=== PATIENT | female | born 1930 | race Caucasian/White ===

== ENCOUNTER 2020-09-01 15:28 | Emergency (ER) | payer MEDICARE, BC ==
[~2020-09-01 15:28] MED LIST: ANTIVERT 25MG T25 MG PO; ARICEPT5 MG PO; ASPIRIN CHEWABL81 MG PO; AZO CRANBERRY1 EAC1 PO; B-122500 MCG SL; BACTRIM DS TAB1 EACH PO; BACTROBAN OINT22 GM EXT; BENADRYL ALLERG25 MG PO; CEPHALEXIN500 MG PO; CIPRO250 MG PO; COZAAR100 MG PO; CRANBERRY200 MG PO; ECOTRIN81 MG PO; ENSURE ORIGINA237 ML PO; ENTOCORT EC3 MG PO; FUROSEMIDE20 MG PO; KEFLEX CAP 500500 MG PO; LASIX20 MG PO; LOPERAMIDE2 M1 PO; MACRODANTIN50 MG PO; MEGACE 400400 MG/10 PO; MEGACE SUSP40 MG/M1 PO; NAMENDA10 MG PO; NITROFURANTOIN50 MG PO; NORVASC 5 MG TAB5 MG PO; OMNICEF 300 MG300 MG PO; QUETIAPINE FUMA25 MG PO; SYNTHROID25 MCG PO; SYNTHROID50 MCG PO; THERAGRAN TAB1 EA PO; TOPROL XL25 MG PO; TYLENOL 325MG325 MG PO; UCERIS9 MG PO; UNISOM50 MG PO; VIBRAMYCIN100 MG PO; VITAMIN B-121000 MCG PO; XARELTO15 PACK PO; ZANTAC 150 MG150 MG PO; ZANTAC150 MG PO; ZITHROMAX250 MG PO; ZOFRAN ODT 4 MG4 MG PO; ZOLOFT25 MG PO; [UNRECOGNIZED DRUG - REMARK] PO
[2020-09-01 19:13] LABS: HEMOGLOBIN 16.3 gm/dl (12.3-15.3); RED BLOOD COUNT 4.87 M/UL (4.00-5.10); WHITE BLOOD COUNT 11.6 K/UL (4.5-11.0)
[2020-09-01 19:31] LABS: BUN/CREATININE RATIO 24 (0-10)
[2020-09-01] MEDS ORDERED: CEFUROXIME500 MG PO (20:04)
== END 2020-09-01 20:40 | disposition home or self-care (01) ==
LOC: ER1 15:28
PROVIDERS: Preventive Medicine Occupational Medicine
DX: R30.0 Dysuria (principal); F03.90 Unspecified dementia, unspecified severity, without behavioral disturbance, psychotic disturbance, mood disturbance, and anxiety; F17.200 Nicotine dependence, unspecified, uncomplicated; I10 Essential (primary) hypertension; Z87.440 Personal history of urinary (tract) infections
CPT/HCPCS: 80053; 81001; 85025; 87086; 96365; 99283; J0696

== ENCOUNTER 2020-11-27 03:52 | Emergency (ER) | payer MEDICARE, BC ==
[~2020-11-27 03:52] MED LIST changes: +CEFUROXIME500 MG PO
[2020-11-27 04:32] LABS: HEMOGLOBIN 14.3 gm/dl (12.3-15.3); RED BLOOD COUNT 4.18 M/UL (4.00-5.10)
[2020-11-27 05:01] LABS: BUN/CREATININE RATIO 39 (0-10)
== END 2020-11-27 10:25 | disposition home or self-care (01) ==
LOC: ER1 03:52
PROVIDERS: Student in an Organized Health Care Education/Training Program
DX: R06.00 Dyspnea, unspecified (principal); R53.1 Weakness; F03.90 Unspecified dementia, unspecified severity, without behavioral disturbance, psychotic disturbance, mood disturbance, and anxiety; Z20.822 Contact with and (suspected) exposure to COVID-19; I11.0 Hypertensive heart disease with heart failure; I50.9 Heart failure, unspecified; E03.9 Hypothyroidism, unspecified
CPT/HCPCS: 0240U; 36600; 70450; 71045; 80053; 81001; 82550; 82553; 82803; 83605; 83690; 83735; 83874; 83880; 84100; 84439; 84443; 84484; 85025; 85379; 87086; 93005; 99285; Q9967

== ENCOUNTER 2020-12-03 19:48 | Emergency (ER) | payer MEDICARE, BC ==
[2020-12-03 22:50] LABS: RED BLOOD COUNT 4.78 M/UL (4.00-5.10); WHITE BLOOD COUNT 10.1 K/UL (4.5-11.0)
[2020-12-03 22:51] LABS: HEMOGLOBIN 16.4 gm/dl (12.3-15.3)
== END 2020-12-04 00:48 | disposition home or self-care (01) ==
LOC: ER1 19:48
PROVIDERS: Physician Assistant
DX: F03.90 Unspecified dementia, unspecified severity, without behavioral disturbance, psychotic disturbance, mood disturbance, and anxiety (principal)
CPT/HCPCS: 70450; 80053; 81001; 85025; 87086; 99285

== ENCOUNTER 2020-12-06 18:36 | Emergency (ER) | payer MEDICARE, BC ==
[2020-12-06 19:39] LABS: HEMOGLOBIN 15.7 gm/dl (12.3-15.3); RED BLOOD COUNT 4.65 M/UL (4.00-5.10)
[2020-12-06 19:56] LABS: BUN/CREATININE RATIO 25 (0-10)
[2020-12-07] MEDS ORDERED: KEFLEX CAP 250250 MG PO (01:29)
== END 2020-12-07 01:38 | disposition home or self-care (01) ==
LOC: ER1 18:36
PROVIDERS: Family Medicine
DX: R44.3 Hallucinations, unspecified (principal); F91.9 Conduct disorder, unspecified; N39.0 Urinary tract infection, site not specified; Z20.822 Contact with and (suspected) exposure to COVID-19; I10 Essential (primary) hypertension; R00.0 Tachycardia, unspecified
CPT/HCPCS: 71045; 80053; 80307; 81001; 82140; 82550; 82553; 83874; 84439; 84443; 84484; 85025; 85610; 93005; 96374; 99284; G0480; J0690; U0002

== ENCOUNTER 2020-12-13 16:48 | Observation (INO) | payer MEDICARE, BC ==
[~2020-12-13] VITALS: Ht 162.6 cm; Wt 55.8 kg
[~2020-12-13 16:48] MED LIST changes: +KEFLEX CAP 250250 MG PO
[2020-12-13 17:35] LABS: RED BLOOD COUNT 4.79 M/UL (4.00-5.10); WHITE BLOOD COUNT 9.7 K/UL (4.5-11.0)
[2020-12-14] MEDS ORDERED: KEFLEX CAP 250250 MG PO (00:45)
[2020-12-14] MEDS ORDERED: NITROFURANTOIN50 MG PO (00:47)
[2020-12-14] MEDS ORDERED: NAMENDA10 MG PO (00:48)
[2020-12-14 04:50] LABS: HEMOGLOBIN 14.8 gm/dl (12.3-15.3); RED BLOOD COUNT 4.41 M/UL (4.00-5.10); WHITE BLOOD COUNT 9.7 K/UL (4.5-11.0)
[2020-12-14] MEDS ORDERED: SYNTHROID88 MCG PO (09:29)
[2020-12-15] MEDS ORDERED: FAMOTIDINE20 MG PO (08:40)
[2020-12-15] MEDS ORDERED: CEFUROXIME500 MG PO (08:40)
--- NOTE | 2020-12-15 12:21 | NUR ---
CALLED REPORT TO CAROL AT [facility], ALSO CALLED EMS
--- NOTE | 2020-12-15 14:32 | NUR ---
pt left per ems at time family at bedside
== END 2020-12-15 14:29 ==
LOC: ER1 16:48 → CDU 19:21 → MED SURG 4 23:04
PROVIDERS: Physician Assistant Medical; ADMIT Internal Medicine
DX: N39.0 Urinary tract infection, site not specified (principal); R53.1 Weakness; R63.0 Anorexia; I10 Essential (primary) hypertension; E03.9 Hypothyroidism, unspecified; K21.9 Gastro-esophageal reflux disease without esophagitis; Z20.822 Contact with and (suspected) exposure to COVID-19; G93.41 Metabolic encephalopathy; F02.80 Dementia in other diseases classified elsewhere, unspecified severity, without behavioral disturbance, psychotic disturbance, mood disturbance, and anxiety; I49.1 Atrial premature depolarization; I44.4 Left anterior fascicular block; Z88.2 Allergy status to sulfonamides; Z79.82 Long term (current) use of aspirin; E86.0 Dehydration; R11.0 Nausea
CPT/HCPCS: 36415; 51701; 80048; 80053; 81001; 83605; 83735; 85025; 87040; 87077; 87086; 87186; 93005; 94760; 96372; 96374; 96376; 97162; 97530; 99285; G0378; J0696; J1650; U0002

== ENCOUNTER 2020-12-19 16:18 | Inpatient (IN) | payer MEDICARE, BC ==
[~2020-12-19] VITALS: Ht 157.5 cm; Wt 50.5 kg
[~2020-12-19 16:18] MED LIST changes: +FAMOTIDINE20 MG PO; +SYNTHROID88 MCG PO
[2020-12-19 18:11] LABS: HEMOGLOBIN 15.3 gm/dl (12.3-15.3); RED BLOOD COUNT 4.53 M/UL (4.00-5.10); WHITE BLOOD COUNT 14.3 K/UL (4.5-11.0)
[2020-12-19 18:37] LABS: BUN/CREATININE RATIO 39 (0-10)
[2020-12-20 03:52] LABS: HEMOGLOBIN 14.8 gm/dl (12.3-15.3); RED BLOOD COUNT 4.47 M/UL (4.00-5.10); WHITE BLOOD COUNT 16.4 K/UL (4.5-11.0)
[2020-12-20] MEDS ORDERED: XANAX0.5 MG PO (06:26)
[2020-12-21 11:02] LABS: HEMOGLOBIN 13.6 gm/dl (12.3-15.3); RED BLOOD COUNT 4.05 M/UL (4.00-5.10); WHITE BLOOD COUNT 15.6 K/UL (4.5-11.0)
[2020-12-22 05:12] LABS: BUN/CREATININE RATIO 41 (0-10)
[2020-12-22 05:13] LABS: HEMOGLOBIN 13.1 gm/dl (12.3-15.3); RED BLOOD COUNT 3.95 M/UL (4.00-5.10); WHITE BLOOD COUNT 12.5 K/UL (4.5-11.0)
[2020-12-23 06:51] LABS: HEMOGLOBIN 13.1 gm/dl (12.3-15.3); RED BLOOD COUNT 3.97 M/UL (4.00-5.10)
[2020-12-23 07:15] LABS: BUN/CREATININE RATIO 29 (0-10)
[2020-12-24 04:45] LABS: BUN/CREATININE RATIO 18 (0-10)
[2020-12-25 06:13] LABS: HEMOGLOBIN 14.2 gm/dl (12.3-15.3); RED BLOOD COUNT 4.27 M/UL (4.00-5.10); WHITE BLOOD COUNT 12.4 K/UL (4.5-11.0)
[2020-12-25 06:36] LABS: BUN/CREATININE RATIO 12 (0-10)
[2020-12-26 06:56] LABS: BUN/CREATININE RATIO 10 (0-10)
[2020-12-26] MEDS ORDERED: FAMOTIDINE20 MG PO (10:05)
[2020-12-26] MEDS ORDERED: METOPROLOL SUCC25 MG PO (10:05)
[2020-12-28 04:03] LABS: HEMOGLOBIN 13.1 gm/dl (12.3-15.3); RED BLOOD COUNT 3.98 M/UL (4.00-5.10); WHITE BLOOD COUNT 9.3 K/UL (4.5-11.0)
[2020-12-28 04:20] LABS: BUN/CREATININE RATIO 19 (0-10)
--- NOTE | 2020-12-28 20:26 | NUR ---
Patient rolled off floor on stretcher by [facility] at 2008. [place] notified of patient's departure from our facility. Family at patient's side and denies any needs or concerns at this time. Patient's PEG tube feeding is stopped and tube is clamped and closed off for transport. Patient does not have any IV sites or a jackson catheter. Patient is alert and stable, no acute distress noted.
== END 2020-12-28 20:09 | DRG 871 ==
LOC: ER1 16:18 → CDU 22:18 → MED SURG 4 22:18
PROVIDERS: Internal Medicine; Internal Medicine Gastroenterology; Physician Assistant; ADMIT Internal Medicine
PROC: 3E0G76Z Introduction of Nutritional Substance into Upper GI, Via Natural or Artificial Opening (ICD-10-PCS; 2020-12-27)
PROC: 0DH63UZ Insertion of Feeding Device into Stomach, Percutaneous Approach (ICD-10-PCS; principal; 2020-12-27 14:30)
DX: A41.9 Sepsis, unspecified organism (principal); J69.0 Pneumonitis due to inhalation of food and vomit; G93.41 Metabolic encephalopathy; J18.9 Pneumonia, unspecified organism; J96.01 Acute respiratory failure with hypoxia; E87.1 Hypo-osmolality and hyponatremia; R65.20 Severe sepsis without septic shock; I10 Essential (primary) hypertension; E03.9 Hypothyroidism, unspecified; K21.9 Gastro-esophageal reflux disease without esophagitis; F03.90 Unspecified dementia, unspecified severity, without behavioral disturbance, psychotic disturbance, mood disturbance, and anxiety; R13.10 Dysphagia, unspecified; L89.152 Pressure ulcer of sacral region, stage 2; Z87.440 Personal history of urinary (tract) infections; E86.0 Dehydration
CPT/HCPCS: 36415; 36600; 71045; 80048; 80053; 82550; 82553; 82803; 83605; 83874; 84132; 84484; 85025; 85610; 87040; 92526; 92610; 96365; 99285; G0378 ×2; J1200; J1630; J1650; J1885; J2001; J2270; J2543; J2704; J3480; J7040; J7050; Q9967; U0002

== ENCOUNTER 2021-01-04 02:04 | Inpatient (IN) | payer MEDICARE, BC ==
[~2021-01-04] VITALS: Ht 154.9 cm; Wt 50.3 kg
[~2021-01-04 02:04] MED LIST changes: +METOPROLOL SUCC25 MG PO; +XANAX0.5 MG PO
[2021-01-04 02:33] LABS: HEMOGLOBIN 14.5 gm/dl (12.3-15.3); RED BLOOD COUNT 4.4 M/UL (4.00-5.10); WHITE BLOOD COUNT 11.1 K/UL (4.5-11.0)
[2021-01-04 02:52] LABS: BUN/CREATININE RATIO 28 (0-10)
[2021-01-04] MEDS ORDERED: PEPCID20 MG PO (08:25)
[2021-01-04] MEDS ORDERED: LOPRESSOR 25 MG25 MG PO (08:25)
[2021-01-04] MEDS ORDERED: REMERON15 MG PO (08:26)
[2021-01-05 08:25] LABS: HEMOGLOBIN 10.7 gm/dl (12.3-15.3); RED BLOOD COUNT 3.32 M/UL (4.00-5.10)
[2021-01-07 04:55] LABS: BUN/CREATININE RATIO 46 (0-10)
--- NOTE | 2021-01-08 00:48 | NUR ---
PATIENT IS CURRENTLY A DNR/DNI, HOWEVER THE FAMILY IS MORE ON THE LINES OF COMFORT CARE AND UNDERSTANDS THE DIFFERENCE. THE PATIENT WENT INTO SVT MULITPLE TIMES DURING THE SHIFT THUS FAR, AFTER GETTING ORDERS FROM THE MD, I SPOKE TO THE FAMILY REGARDING THE MEDICATION, ORDERS AND THE EFFECTS OF ALL. THE FAMILY UNDERSTOOD AND WANTED THE PATIENT TO BE COMFORTABLE AND DID WANT THE LOPRESSOR AND OTHER MEDS ORDERED. ANY TIME THERE IS AN MD ORDER, IT IS RAN BY THE FAMILY TO ENSURE THEY WANT TO CARRY OUT WITH IT. I SPOKE TO THE FAMILY ABOUT COMFORT CARE AND WHAT COULD BE DONE TO KEEP THE PATIENT COMFORTABLE. I SPOKE TO THEM ABOUT WHAT COMFORT CARE WAS, AND THEY WANTED TO STOP ALL ABX AND ONLY CONTINUE WITH CERTAIN MEDICATIONS AND THE DIULADID AND ATIVAN. THEY ASKED IF THEY SHOULD CALL OTHER FAMILY IN, AFTER EXPLAINING I COULD NOT TELL THEM WHETHER OR NOT THE WOULD BE SOON. HOWEVER, I DID SUGGEST IT WOULDN'T BE A BAD IDEA CONSIDERING SHE IS DECLINING.
--- NOTE | 2021-01-12 23:47 | NUR ---
EMS LEFT WITH PATIENT AT 2300. IV WAS TAKEN OUT AND THE GOLDMAN CATH WAS LEFT IN PER MD. FAMILY AT BEDSIDE AND AWARE. CALLED HOSPICE NURSE TO LET HER KNOW THE PATIENT IS LEAVING.
== END 2021-01-12 23:00 | DRG 871 ==
LOC: ER1 02:04 → PROG CARE 03:34 → CDU 03:34 → PROG CARE 09:32
PROVIDERS: Internal Medicine; ADMIT Internal Medicine
DX: A41.9 Sepsis, unspecified organism (principal); J96.01 Acute respiratory failure with hypoxia; J69.0 Pneumonitis due to inhalation of food and vomit; R65.21 Severe sepsis with septic shock; Z20.822 Contact with and (suspected) exposure to COVID-19; Z51.5 Encounter for palliative care; Z66 Do not resuscitate; G93.41 Metabolic encephalopathy; E87.1 Hypo-osmolality and hyponatremia; E44.0 Moderate protein-calorie malnutrition; I47.1 Supraventricular tachycardia; R64 Cachexia; N17.9 Acute kidney failure, unspecified; E87.5 Hyperkalemia; E03.9 Hypothyroidism, unspecified; I11.9 Hypertensive heart disease without heart failure; E87.70 Fluid overload, unspecified; F41.9 Anxiety disorder, unspecified; R13.10 Dysphagia, unspecified; F03.90 Unspecified dementia, unspecified severity, without behavioral disturbance, psychotic disturbance, mood disturbance, and anxiety; K21.9 Gastro-esophageal reflux disease without esophagitis; Z88.6 Allergy status to analgesic agent; Z87.440 Personal history of urinary (tract) infections; Z93.1 Gastrostomy status; Z68.21 Body mass index [BMI] 21.0-21.9, adult
CPT/HCPCS: 36415; 36600; 71045; 80048; 80053; 80202; 82550; 82553; 82803; 83605; 83735; 83874; 84439; 84443; 84484; 85025; 85027; 87040; 93005; 94760; 96374; 99285; C9113; J1170; J1940; J2060; J2543; J3370; J7030; J7070; U0002